=== PATIENT | female | born 1980 | race African-American/Black ===

== ENCOUNTER → 2021-10-23 01:34 | Outpatient (CLI) | payer OTHER, SELFPAY ==
[2021-10-23 20:33] LABS: SARS-CoV-2 RNA PCR Negative
== END ==
PROVIDERS: PCP Internal Medicine Infectious Disease; Visit Provider Internal Medicine Infectious Disease
DX: R51.9 Headache, unspecified (principal); Z20.822 Contact with and (suspected) exposure to COVID-19
CPT/HCPCS: C9803; U0003; U0005